=== PATIENT | male | born 1960 | race Caucasian/White ===

== ENCOUNTER → 2021-01-03 | Outpatient (CLI) | payer OTHER ==
[~2021-01-03] MED LIST: ASPI81TA45 PO; ATOR10TA PO; HYDR1TAB13 PO; HYDR1TAB16 PO; NICO-586 TD; OMNIPAQUE 350 MG/ML, 100ML BOTTLE ONE; OXYC-380 PO; VALS1TAB7 PO; [UNRECOGNIZED DRUG - REMARK] PO
== END | disposition home or self-care (01) ==
LOC: CFH 13:33
PROVIDERS: ATTEND Internal Medicine Cardiovascular Disease
DX: I25.10 Atherosclerotic heart disease of native coronary artery without angina pectoris (principal); R07.9 Chest pain, unspecified
CPT/HCPCS: 75574; 82565; Q9967

== ENCOUNTER → 2021-02-16 | Outpatient (CLI) | payer OTHER ==
[~2021-02-16] MED LIST changes: -OMNIPAQUE 350 MG/ML, 100ML BOTTLE ONE
== END | disposition home or self-care (01) ==
LOC: CVU 07:39
PROVIDERS: ATTEND Internal Medicine Cardiovascular Disease
DX: I11.9 Hypertensive heart disease without heart failure (principal); I25.2 Old myocardial infarction
CPT/HCPCS: 93306

== ENCOUNTER 2021-03-03 06:19 | Day surgery (SDC) | payer OTHER ==
[2021-03-03 08:01] LABS: BASOPHILS % (AUTO) 1 % (0-1); EOSINOPHILS % (AUTO) 2 % (1-7); LYMPHOCYTES % (AUTO) 23 % (22-44); MEAN CORPUSCULAR HGB CONC 33.6 g/dL (33.2-36.2); MEAN PLATELET VOLUME 7.9 fL (7.4-10.4); MONOCYTES % (AUTO) 7 % (2-9); NEUTROPHILS % (AUTO) 68 % (42-75); PLATELET COUNT 164 x10^3/uL (130-400); RED CELL DISTRIBUTION WIDTH 14.6 % (9.4-14.8)
[2021-03-03] MEDS ORDERED: CARV6.252 PO (08:07)
[2021-03-03] MEDS ORDERED: ROSU20TA2 PO (08:07)
[2021-03-03 08:14] LABS: ANION GAP 3 mmol/L (5-15); CALCIUM 8.8 mg/dL (8.5-10.1); CHLORIDE 112 mmol/L (98-107); CREATININE 0.89 mg/dL (0.7-1.3)
[2021-03-03] MEDS ORDERED: LIDOCAINE-MPF 1%, 5ML ONE (09:23)
[2021-03-03] MEDS ORDERED: VERAPAMIL 2.5 MG/ML, 2ML ONE (09:23)
[2021-03-03] MEDS ORDERED: MIDAZOLAM 1 MG/ML, 5ML ONE (09:23)
[2021-03-03] MEDS ORDERED: FENTANYL PF 100 MCG/2ML ONE (09:23)
[2021-03-03] MEDS ORDERED: HEPARIN 1,000 UNITS/ML, 10ML ONE (09:23)
[2021-03-03] MEDS ORDERED: NITROGLYCERIN 5 MG/ML, 10ML ONE (09:24)
[2021-03-03] MEDS ORDERED: SODIUM CHLORIDE 0.9% 1,000 ML IV SCH (11:00)
== END 2021-03-03 12:09 | disposition home or self-care (01) ==
LOC: CACL 06:19
PROVIDERS: ATTEND Internal Medicine Cardiovascular Disease
DX: R93.1 Abnormal findings on diagnostic imaging of heart and coronary circulation (principal); I25.118 Atherosclerotic heart disease of native coronary artery with other forms of angina pectoris; I25.83 Coronary atherosclerosis due to lipid rich plaque; I25.82 Chronic total occlusion of coronary artery; I10 Essential (primary) hypertension; E78.5 Hyperlipidemia, unspecified; E66.3 Overweight; F17.210 Nicotine dependence, cigarettes, uncomplicated; Z68.41 Body mass index [BMI] 40.0-44.9, adult; Z79.82 Long term (current) use of aspirin; Z79.1 Long term (current) use of non-steroidal anti-inflammatories (NSAID); Z79.899 Other long term (current) drug therapy; Z80.1 Family history of malignant neoplasm of trachea, bronchus and lung; Z83.6 Family history of other diseases of the respiratory system
CPT/HCPCS: 36415; 80048; 85025; 93458; 93571; 99156; 99157; C1769; C1894; J1644; J2250; J3010; Q9967